=== PATIENT | male | born 1955 | race Caucasian/White ===

== ENCOUNTER 2016-12-26 13:29 | Emergency (ER) | payer OTHER, SELFPAY ==
[2016-12-26 17:24] LABS: ALBUMIN 3.7 g/dL (3.4-4.8); CREATININE 0.8 mg/dL (0.7-1.2); GLOBULIN (CALCULATION) 2.8 g/dL (2.2-4.2); POTASSIUM 4.2 mmol/L (3.5-5.1); TOTAL PROTEIN 6.5 g/dL (6.4-8.3)
[2016-12-26 17:27] LABS: BASOPHIL 1.1 % (0-2); EOSINOPHIL 3.4 % (0-5); HCT 37.7 % (42.0-52.0); HGB 12.2 g/dl (13.2-18.0); LYMPHOCYTE 26.5 % (15-48); MCHC 32.4 g/dL (32.0-36.0); MCV 95.7 fL (78.0-100.0); MONOCYTE 18.8 % (0-12); NEUTROPHIL 50.2 % (41-80); PLT 116 K/uL (150-400); RBC 3.94 M/uL (4.70-6.00); RDW 14.2 % (11.5-14.0); WBC 4.7 K/uL (4.0-10.5)
[2016-12-26 17:27] LABS: BILIRUBIN NEGATIVE (NEGATIVE); BLOOD NEGATIVE Ery/uL (NEGATIVE); CLARITY CLEAR (CLEAR); COLOR YELLOW (YELLOW); GLUCOSE (U) NORMAL (NORMAL); KETONE (U) NEGATIVE (NEGATIVE); LEUKOCYTES NEGATIVE Leu/uL (NEGATIVE); NITRITE NEGATIVE (NEGATIVE); PROTEIN TRACE (LOW) mg/dL (NEGATIVE); SPECIFIC GRAVITY >=1.030 (1.001-1.030)
[2016-12-26 17:29] LABS: LACTIC ACID 1.8 mmol/L (0.5-2.2)
[2016-12-26 17:39] LABS: URINARY WBC RARE
[2016-12-26 17:40] LABS: MUCOUS MODERATE
== END 2016-12-26 18:48 | disposition home or self-care (01) ==
LOC: FER 13:29
PROVIDERS: Emergency Medicine
DX: J11.1 Influenza due to unidentified influenza virus with other respiratory manifestations (principal); J44.9 Chronic obstructive pulmonary disease, unspecified; I11.9 Hypertensive heart disease without heart failure; Z88.8 Allergy status to other drugs, medicaments and biological substances; Z79.82 Long term (current) use of aspirin; Z79.51 Long term (current) use of inhaled steroids; Z79.899 Other long term (current) drug therapy
CPT/HCPCS: 36415; 71020; 80053; 81001; 83605; 85025; 87450; 87804; 87899; 94640; J2930